=== PATIENT | male | born 1955 | race Caucasian/White ===

== ENCOUNTER 2016-05-17 10:23 | Emergency (ER) | payer OTHER ==
[2016-05-17 15:07] LABS: ABSOLUTE NEUTROPHIL COUNT 7.1 K/mm3 (1.8-7.7); BASO % 0.4 % (0.2-1.0); EOS # 0.1 (0.0-0.5); EOS % 0.8 % (0.9-2.9); HEMATOCRIT 45.5 % (32.0-52.0); HEMOGLOBIN 14.9 gm/l (14.0-18.0); IMM NEUT% 0.3 % (0-1); LYMPH # 1.4 (1.0-4.8); LYMPH % 14.2 % (15-45); MEAN CELL VOLUME 102.5 fl (80.0-94.0); MEAN CORPUSCULAR HEMOGLOBIN 33.6 pg (27.0-31.0); MEAN CORPUSCULAR HGB CONC 32.7 g/dl (33.0-37.0); MEAN PLATELET VOLUME 10.8 fl (7.4-10.4); MONO # 1.1 (0.0-0.8); MONO % 11.6 % (4-12); NEUT % 72.7 % (43-75); PLATELET COUNT 216 K/mm3 (130-400); RED CELL DISTRIBUTION WIDTH 12.5 % (11.5-14.5)
[2016-05-17 15:18] LABS: ALB/GLOB RATIO 1.3 (>1.0); ALBUMIN 4.5 gm/dL (3.5-5.7); CALCIUM 10.6 mg/dL (8.6-10.3)
--- NOTE | 2016-05-17 15:22 | RAD ---
Name: JULIA SHARMA Exam: Two-view chest Comparison: 06/20/2008 Clinical history: Cold symptoms Findings: 2 views of the chest are submitted. Heart mediastinum and hilar structures are normal. There is mild increased density at the left costophrenic sulcus new from the prior exam. Epicardial fat is favored. Follow-up 2 view chest is recommended. There is no failure, infiltrate, effusion or pneumothorax. Regional skeleton is within normal limits. Impression: 1. No acute cardiopulmonary process 2. Mild increased density at the left costophrenic sulcus. Epicardial fat is favored. Follow-up 2 view chest is recommended.
[2016-05-17] MEDS ORDERED: KETOROLAC TROMETHAMINE 30 MG/ML 1 ML VIAL ONE (15:34)
== END 2016-05-17 15:56 | disposition home or self-care (01) ==
LOC: ED 10:23
DX: J02.9 Acute pharyngitis, unspecified (principal); R50.9 Fever, unspecified